=== PATIENT | female | born 1960 | race Caucasian/White ===

== ENCOUNTER → 2018-01-24 | Outpatient (CLI) | payer MEDICARE, BC ==
[~2018-01-24] MED LIST: CELEXA; DEXILANT PO; GEODON; LAMICTAL; LAMICTAL200 MG PO; LEVOTHYROXINE PO; PRILOSEC; SIMVASTATIN20 MG PO; SYNTHROID0.05 MG PO; ZOCOR40 MG PO
== END ==
LOC: COL.RAD 07:14
DX: R10.13 Epigastric pain (principal)
CPT/HCPCS: Q9967

== ENCOUNTER → 2018-02-19 | Outpatient (CLI) | payer MEDICARE, BC | LOC: SUN.DIA | DX: E11.9 Type 2 diabetes mellitus without complications (principal); Z79.4 Long term (current) use of insulin; E78.5 Hyperlipidemia, unspecified; I10 Essential (primary) hypertension; E66.9 Obesity, unspecified; Z68.37 Body mass index [BMI] 37.0-37.9, adult; Z71.3 Dietary counseling and surveillance; Z87.891 Personal history of nicotine dependence | CPT/HCPCS: G0108 ==

== ENCOUNTER → 2018-02-20 | Outpatient (CLI) | payer MEDICARE, BC | LOC: MC.RAD 08:34 | DX: Z12.31 Encounter for screening mammogram for malignant neoplasm of breast (principal) ==

== ENCOUNTER → 2018-03-15 | Outpatient (CLI) | payer MEDICARE, BC | LOC: SUN.DIA 08:55 | DX: E11.9 Type 2 diabetes mellitus without complications (principal); Z79.4 Long term (current) use of insulin; E78.5 Hyperlipidemia, unspecified; I10 Essential (primary) hypertension; E66.9 Obesity, unspecified; Z68.36 Body mass index [BMI] 36.0-36.9, adult; Z71.3 Dietary counseling and surveillance; Z87.891 Personal history of nicotine dependence ==

== ENCOUNTER 2018-06-16 00:59 | Emergency (ER) | payer MEDICARE, BC ==
[2005-10-30 00:32] VITALS: BP 120/76
[~2018-06-16] VITALS: Ht 162.6 cm; Wt 97.7 kg
[~2018-06-16 00:59] MED LIST changes: -AMOXICILLIN 50500 MG PO; -DESYREL 100MG100 MG PO; -GEODON60 MG PO; -GLUCOPHAGE1000 MG PO; -NORCO 325 MG-51 TAB PO; -NOVOLOG 100U100 U/M1 SQ; -TRESIBA FL100 UNIT/1 SQ
[2018-06-16 01:01] VITALS: TEMP 99.8
[2018-06-16] MEDS ORDERED: GLUCOPHAGE1000 MG PO (01:11)
[2018-06-16] MEDS ORDERED: GEODON60 MG PO (01:12)
[2018-06-16] MEDS ORDERED: NOVOLOG 100U100 U/M1 SQ (01:15)
[2018-06-16] MEDS ORDERED: DESYREL 100MG100 MG PO (01:18)
[2018-06-16] MEDS ORDERED: TRESIBA FL100 UNIT/1 SQ (01:26)
[2018-06-16 02:12] VITALS: BP 157/73; PULSE 110
[2018-06-16] MEDS ORDERED: AMOXICILLIN 50500 MG PO (10:56)
[2018-06-16] MEDS ORDERED: NORCO 325 MG-51 TAB PO (10:56)
== END 2018-06-16 02:12 | disposition home or self-care, planned readmission (81) ==
LOC: COL.ER 00:59
DX: T74.21XA Adult sexual abuse, confirmed, initial encounter (principal); M54.2 Cervicalgia; E11.9 Type 2 diabetes mellitus without complications; F31.9 Bipolar disorder, unspecified; Z79.4 Long term (current) use of insulin; Z90.710 Acquired absence of both cervix and uterus; Z87.891 Personal history of nicotine dependence; Y07.9 Unspecified perpetrator of maltreatment and neglect

== ENCOUNTER 2018-06-16 02:17 | Outpatient (CLI) | payer MEDICARE, BC ==
[~2018-06-16 02:17] MED LIST changes: +DESYREL 100MG100 MG PO; +GEODON60 MG PO; +GLUCOPHAGE1000 MG PO; +NOVOLOG 100U100 U/M1 SQ; +TRESIBA FL100 UNIT/1 SQ
[2018-06-16] MEDS ORDERED: NORCO 325 MG-51 TAB PO (10:56)
[2018-06-16] MEDS ORDERED: AMOXICILLIN 50500 MG PO (10:56)
== END 2018-06-16 06:20 | disposition home or self-care (01) ==
LOC: LDRO 02:17
DX: T74.21XA Adult sexual abuse, confirmed, initial encounter (principal); Z90.710 Acquired absence of both cervix and uterus
CPT/HCPCS: J0696

== ENCOUNTER → 2018-06-16 | Outpatient (REF) ==
[~2018-06-16] MED LIST changes: +AMOXICILLIN 50500 MG PO; +DESYREL 100MG100 MG PO; +GEODON60 MG PO; +GLUCOPHAGE1000 MG PO; -LAMICTAL; +LAMICTAL 100MG100 MG PO; +NORCO 325 MG-51 TAB PO; +NOVOLOG 100U100 U/M1 SQ; +TRESIBA FL100 UNIT/1 SQ
== END ==
LOC: LDRO 02:20
DX: T74.21XA Adult sexual abuse, confirmed, initial encounter (principal)

== ENCOUNTER → 2019-01-16 | Outpatient (CLI) | payer MEDICARE, BC ==
[~2019-01-16] MED LIST changes: +AMOXICILLIN 50500 MG PO; +NORCO 325 MG-51 TAB PO
== END ==
LOC: COL.RAD 07:35
DX: K21.9 Gastro-esophageal reflux disease without esophagitis (principal)
CPT/HCPCS: A9541

== ENCOUNTER → 2019-06-28 | Outpatient (CLI) | payer MEDICARE, BC | LOC: MC.RAD 09:03 | DX: Z12.31 Encounter for screening mammogram for malignant neoplasm of breast (principal) ==

== ENCOUNTER 2019-11-03 11:39 | Emergency (ER) | payer MEDICARE, BC ==
[2005-10-30 00:32] VITALS: BP 120/76
[~2019-11-03] VITALS: Ht 162.6 cm; Wt 98.2 kg
[2019-11-03 12:03] VITALS: BP 145/96; TEMP 97.3
[2019-11-03 14:25] VITALS: PULSE 88
== END 2019-11-03 14:25 | disposition home or self-care (01) ==
LOC: COL.ER 11:39
DX: S02.2XXA Fracture of nasal bones, initial encounter for closed fracture (principal); E11.9 Type 2 diabetes mellitus without complications; Z79.4 Long term (current) use of insulin; Z87.891 Personal history of nicotine dependence; Z98.51 Tubal ligation status; W18.39XA Other fall on same level, initial encounter; Y92.009 Unspecified place in unspecified non-institutional (private) residence as the place of occurrence of the external cause

== ENCOUNTER → 2019-11-19 | Outpatient (CLI) | payer MEDICARE, BC | LOC: COL.RAD 13:38 | DX: S06.0X0D Concussion without loss of consciousness, subsequent encounter (principal) ==

== ENCOUNTER → 2020-09-03 | Outpatient (CLI) | payer MEDICARE, BC | LOC: MC.RAD 10:54 | DX: N64.1 Fat necrosis of breast (principal) ==